=== PATIENT | female | born 1945 | race Caucasian/White ===

== ENCOUNTER → 2019-05-06 | Outpatient (CLI) | payer MEDICARE | END | disposition home or self-care (01) | LOC: CFH 10:57 | PROVIDERS: ATTEND Nurse Practitioner Family | DX: M81.0 Age-related osteoporosis without current pathological fracture (principal) | CPT/HCPCS: 77080 ==

== ENCOUNTER → 2020-01-07 | Outpatient (CLI) | payer MEDICARE | END | disposition home or self-care (01) | LOC: CFH 13:26 | PROVIDERS: ATTEND Nurse Practitioner | DX: Z12.2 Encounter for screening for malignant neoplasm of respiratory organs (principal); F17.219 Nicotine dependence, cigarettes, with unspecified nicotine-induced disorders; I25.10 Atherosclerotic heart disease of native coronary artery without angina pectoris; J43.2 Centrilobular emphysema; M41.85 Other forms of scoliosis, thoracolumbar region; M51.35 Other intervertebral disc degeneration, thoracolumbar region; R91.1 Solitary pulmonary nodule | CPT/HCPCS: G0297 ==

== ENCOUNTER → 2020-05-02 | Outpatient (CLI) | payer MEDICARE | END | disposition home or self-care (01) | LOC: CFH 13:52 | PROVIDERS: ATTEND Nurse Practitioner | DX: R91.1 Solitary pulmonary nodule (principal); J43.2 Centrilobular emphysema | CPT/HCPCS: 71250 ==

== ENCOUNTER → 2020-10-27 | Outpatient (CLI) | payer MEDICARE | END | disposition home or self-care (01) | LOC: CFH 10:41 | PROVIDERS: ATTEND Nurse Practitioner | DX: R91.1 Solitary pulmonary nodule (principal); J43.2 Centrilobular emphysema | CPT/HCPCS: 71250 ==

== ENCOUNTER → 2020-11-30 | Outpatient (CLI) | payer MEDICARE | END | disposition home or self-care (01) | LOC: PETCFH 06:54 | PROVIDERS: ATTEND Nurse Practitioner | DX: R91.1 Solitary pulmonary nodule (principal); R91.8 Other nonspecific abnormal finding of lung field; J43.9 Emphysema, unspecified | CPT/HCPCS: 78815; A9552 ==

== ENCOUNTER 2020-12-12 07:15 | Day surgery (SDC) | payer MEDICARE ==
[~2020-12-12] VITALS: Ht 167.6 cm; Wt 46.7 kg
[2020-12-12 08:17] VITALS: BP 141/80
[2020-12-12] MEDS ORDERED: ALBU18HF INH (08:27)
[2020-12-12] MEDS ORDERED: FLUT1BLS3 IH (08:27)
[2020-12-12] MEDS ORDERED: ESTR30CR TP (08:27)
[2020-12-12] MEDS ORDERED: LIDOCAINE 1%, 10ML ONE (09:20)
[2020-12-12] MEDS ORDERED: FENTANYL PF 100 MCG/2ML ONE (09:32)
[2020-12-12] MEDS ORDERED: NALOXONE 1 MG/ML, 2ML ONE (09:32)
[2020-12-12] MEDS ORDERED: FLUMAZENIL 0.1 MG/1 ML, 5ML ONE (09:32)
[2020-12-12] MEDS ORDERED: MIDAZOLAM 1 MG/ML, 5ML ONE (09:32)
== END 2020-12-12 23:59 | disposition home or self-care (01) ==
LOC: RAD 07:15 → OUT 07:15 → EDSTATUS 09:30 → OUT 23:59 → RAD 23:59
PROVIDERS: ATTEND Nurse Practitioner
DX: R91.8 Other nonspecific abnormal finding of lung field (principal); J44.9 Chronic obstructive pulmonary disease, unspecified; I25.10 Atherosclerotic heart disease of native coronary artery without angina pectoris; F17.210 Nicotine dependence, cigarettes, uncomplicated; Z79.899 Other long term (current) drug therapy
CPT/HCPCS: 32408; 71045; 88305; 99156; C2613; J2250; J3010; 77012; J2310